=== PATIENT | female | born 1990 | race Caucasian/White ===

== ENCOUNTER 2024-01-24 17:45 | Emergency (ER) | payer BC, SELFPAY ==
[2024-01-24 17:48] VITALS: BP 143/83
[2024-01-24 18:07] LABS: % Basophils 0.3 % (0-2); % Eosinophils 0.9 % (0-6); % Immature Granulocytes 0.1 % (0-0.5); % Lymphocytes 36.5 % (20.5-51.1); % Monocytes 5.3 % (1.7-9.3); % Neutrophils 56.9 % (42.2-75.2); Absolute Eosinophils 0.1 10^3/uL (0-0.7); Absolute Lymphocytes 2.8 10^3/uL (1.2-3.4); Absolute Monocytes 0.4 10^3/uL (0.1-0.6); Absolute Neutrophils 4.4 10^3/uL (1.4-6.5); Hematocrit 37.7 % (37.0-47.0); Hemoglobin 13.1 g/dL (12.0-16.0); Mean Corp Hgb Conc. 34.7 g/dL (33.0-37.0); Mean Corpuscular Hgb 30.5 pg (27.0-31.0); Mean Corpuscular Volume 87.9 fL (81.0-99.0); Mean Platelet Volume 9.9 fL (7.4-10.4); Nucleated Red Blood Cells % 0 %; Platelet Count 250 10^3/uL (130-400); Red Blood Cell Count 4.29 10^6/uL (4.20-5.40); Red Cell Dist. Width 11.9 % (11.5-14.5); White Blood Cell Count 7.8 10^3/uL (4.8-10.8)
[2024-01-24 18:34] LABS: HCG, Serum Qualitative Screen Negative
[2024-01-24 18:35] LABS: ALT (SGPT) 14 U/L (0-35); AST (SGOT) 22 U/L (14-36); Albumin 4.6 g/dl (3.5-5.0); Alkaline Phosphatase 100 U/L (38-126); Blood Urea Nitrogen 17 mg/dl (7-17); Calcium 8.8 mg/dl (8.4-10.2); Carbon Dioxide 25 mmol/L (22-30); Chloride 105 mmol/L (98-107); Glucose 106 mg/dl (70-99); Sodium 137 mmol/L (135-145); Total Bilirubin 0.4 mg/dl (0.2-1.3); eGFR > 60.00
[2024-01-24 19:19] VITALS: BMI 25.4
[2024-01-24 19:23] VITALS: BP 124/79
--- NOTE | 2024-01-24 19:46 | ED.GENMED ---
History of Present Illness
General
Chief Complaint: Headache
Source: patient
Exam Limitations: none
Time Seen by Provider: 01/24/24 19:19
Travel History
Have you had any contact with someone who has COVID-19?: No
Do you have any symptoms of coronavirus? Fever > 100 degrees, chills, cough, shortness of breath, sore throat, loss of taste or smell, muscle aches, or headache?: No
History of Present Illness
History of Present Illness:
33-year-old otherwise healthy female presents complaining of intermittent sudden severe headache starting 2 weeks ago. She developed what she thought was a migraine 2 weeks ago. She has no history of headaches or migraines prior to this. She was
nauseous at this time. She noted left hand numbness at this time. She laid down for 6 hours and it seemed to go away. Since then she has had intermittent sudden onset headache to the top of her head more associated with exertion. She went to the
gym and developed 1, this went away. Today she picked up her 2-year-old son and walked across room developed sudden throbbing to the top of her head. There is no other associated neurologic symptoms with this. She states the pain tends to go away
after she rests. Currently on my exam after waiting in the waiting room over 2 hours, she states that her headache is resolved. She denies double vision or blurry vision with these headaches. She denies any unilateral numbness or weakness
currently. No neck pain chest pain or shortness of breath. Currently on menstrual cycle. She has seen a neurologist since the onset of her symptoms and had an office performed EEG which was negative. They did schedule her for an MRI/MRA of the
brain which is later this
Phy Exam
Physical Exam
Physical Exam:
General: Well-appearing female no acute respiratory distress
HEENT: Normocephalic atraumatic pupils equal round reactive to light
Heart: Regular rate and rhythm no murmurs
Lungs: Clear to auscultation bilaterally no wheezing
Neurologic exam normal gait alert and oriented x 3 no facial asymmetry conversing appropriately no ataxia
Extremities: No cyanosis
Course
Orders/Labs/Results
Orders:
Orders
01/24/24 17:53
Test Result ONCE
01/24/24 17:59
CMP [Comprehensive Metabolic Panel] Urgent
Complete Blood Count/With Diff Urgent
HCG, Serum Qualitative Screen Urgent
01/24/24 19:44
CT Head & Neck Angio W/wo IV Urgent
Reason For Exam: sudden, exertional headache
Abnormal Lab Results
01/24/24
17:59
Glucose 106 H mg/dl
(70-99)
01/24/24 17:59
01/24/24 17:59
Vital Signs
Initial and Last Documented VS:
Initial Vital Signs
Temp Pulse Resp BP Pulse Ox
98.0 F 98 16 143/83 98
01/24/24 17:48 01/24/24 17:48 01/24/24 17:48 01/24/24 17:48 01/24/24 17:48
Last Documented Vital Signs
Temp Pulse Resp BP Pulse Ox
98.0 F 90 14 116/76 100
01/24/24 17:48 01/24/24 21:39 01/24/24 21:39 01/24/24 21:39 01/24/24 21:39
MDM/Problems Addressed
Differential Diagnosis Includes:
Headache. Question atypical migraine however she does describe sudden onset headache with exertion. Currently no symptoms. Will check CT angio of head and neck to evaluate for any bleeding aneurysmal dilation or other concerning issues. Labs
through triage I have reviewed and are negative. Discussed these findings with neurology who did recommend the CTA.
*Critical Care Note
Total Time (30-74mins, 75-104mins- exclusive of procedures): Not Applicable
Update Note
Update Note:
CT angio of the head and neck was ordered which was negative. Patient reassured. There is no aneurysmal dilation of the carotid arteries of the [place]. Patient reassured. Recommend he continue to follow-up with neurology and stick with
the plan regarding the MRI in 2 weeks. Stable for discharge
ED Attending Note
-
Portions of this chart may have been created with voice recognition software.� Occasional wrong word or��sound alike� substitutions may have occurred due to the inherent limitations of voice recognition software.
Discharge Plan
Departure
Patient Disposition: Home (Routine Discharge)
Date of Disposition: 01/24/24
Time of Disposition: 22:17
Patient with high blood pressure during this ER visit?: No
Discharge Problem:
Headache
Instructions: Headache, Adult (DC)
Prescriptions:
No Action
cetirizine [Zyrtec] 10 mg Tablet
10 mg PO DAILY
triamcinolone acetonide [Nasacort] 55 mcg Aerosol,[place]
2 spray INTRANASAL DAILY
Referrals:
Pranay Pittman MD [Family Provider] -
Activity Restrictions/Additional Instructions:
Please return here for any worsening symptoms. Continue to follow-up with neurology as planned otherwise
Interventions
Interventions:
*Risk Screen - Suicide Last Done: 01/24/24 19:19
*General Assessment Last Done: 01/24/24 19:19
*Neglect/Abuse Screening Last Done: 01/24/24 19:19
*ED COVID-19 Vaccine History Last Done: 01/24/24 17:48
ED- Neurological Assessment Last Done: 01/24/24 19:24
[2024-01-24 21:39] VITALS: BP 116/76
== END 2024-01-24 23:00 | disposition home or self-care (01) ==
LOC: EMR 17:45
PROVIDERS: EMERGENCY PHYSICIAN Emergency Medicine; FAMILY PHYSICIAN Family Medicine
DX: R51.9 Headache, unspecified (principal)
CPT/HCPCS: 99285; 70496; 70498; 80053; 84703; 85025; Q9967

== ENCOUNTER → 2024-02-05 07:15 | Outpatient (REF) | payer BC, SELFPAY | LOC: MRI 07:15 | PROVIDERS: ATTENDING PHYSICIAN Internal Medicine; FAMILY PHYSICIAN Family Medicine | DX: G43.009 Migraine without aura, not intractable, without status migrainosus (principal); G44.85 Primary stabbing headache; R42 Dizziness and giddiness | CPT/HCPCS: 70551 ==

== ENCOUNTER → 2024-07-21 11:59 | Outpatient (REF) | payer BC, SELFPAY | LOC: HWRAD 11:59 | PROVIDERS: ATTENDING PHYSICIAN Family Medicine | DX: M25.561 Pain in right knee (principal) | CPT/HCPCS: 73564 ==

== ENCOUNTER 2024-10-26 15:33 | Emergency (ER) | payer BC, SELFPAY ==
[2024-10-26 15:38] VITALS: BP 142/112
--- NOTE | 2024-10-26 15:49 | ED.GENMED ---
ED Provider Triage
<ROSI Cruz - Last Filed: 10/26/24 15:59>
-
Patient seen by provider in Triage?: Seen in Triage
Attestation: A medical screening examination has been initiated by a qualified medical provider. Based on the assessment performed at this time, it has been determined that an emergent medical condition may exist and the patient has been informed
that further medical evaluation and possible additional diagnostic testing may be needed.
HPI: 34 yr old female s/p diastasis repair and hernia repair Nov . pt has infection to umbilical incision (dissoluble sutures ) started 4 d ago and was started on antibiotics (Cefadroxil )by surgeon last night. pt however has been
vomiting since early this morning/late last night and is unable to take them. Pt c/o of discomfort to umbilical region. No fevers. Pt has vomited more than 12 times.
GENERAL: Alert , in no apparent distress
EYE: No visual abnormalities.
NECK: Trachea midline
ENT: No visible abnormalities.
LUNGS: No acute respiratory distress
NEUROLOGICAL: Alert and oriented
SKIN: Skin intact. No visible changes.
MUSCULOSKELETAL: Moving extremities normally
PSYCH: Normal and appropriate interaction.
This is a medical evaluation conducted in person to initiate diagnostic evaluation and provide initial therapeutics. Please see further documentation by the treating clinician.
History of Present Illness
<ROSI Cruz - Last Filed: 10/26/24 15:59>
General
Chief Complaint: Abdominal Symptoms
Time Seen by Provider: 10/26/24 18:47
<ROSI Saini - Last Filed: 10/26/24 22:22>
General
Source: patient
Exam Limitations: none
History of Present Illness
History of Present Illness:
This is a 34 year old female that comes in with c/o nausea, vomiting and diarrhea. States that she had a Tummy tuck and 2 hernia repairs at [facility]. States that she was doing good until her navel got infected. States that one of the dissolvable
sutures was sticking out and it must have gotten infected. States that this started 4 days ago. States that she was told to warm compresses and her surgeon prescribed Cefadroxil 500mg Q12 hour which she took her first dose last night. States that
she was doing Tele visits with the surgeon. States that she has not been able to keep anything down. States that she had a fever on , Friday and Friday. States that her abd is sore. Denies any chest pain, SOB, headache, dizziness, urinary
burning.
Past History
<ROSI Saini - Last Filed: 10/26/24 22:22>
Past History
ED Past Medical History: Asthma and Other (Back and neck pain, Migraines, Stomach ulcers)
ED Past Surgical History: Tonsilectomy and Other (Sinus surgery, Hernia repair X 2, Tummy tuck)
Social History
Tobacco: Non-smoker
Alcohol: Occasional
Personal:
Living: with family
Review of Systems
<ROSI Saini - Last Filed: 10/26/24 22:22>
Review of Systems
All Other Systems: ROS reviewed and negative except as documented in HPI and ROS
Constitutional: Reports fever (, Friday and Friday)
EENT: Reports no symptoms
Respiratory: Reports no symptoms; Denies cough or trouble breathing
Cardiac: Reports no symptoms; Denies chest pain
ABD/GI: Reports abdominal pain (Sore), nausea, vomiting and diarrhea
: Reports no symptoms; Denies dysuria, frequency or urgency
Musculoskeletal: Reports no symptoms
Skin: Reports no symptoms
Neurological: Reports no symptoms; Denies dizzy or headache
Psychiatric: Reports no symptoms
Phy Exam
<ROSI Saini - Last Filed: 10/26/24 22:22>
General Physical Exam
General Presentation: no apparent distress
General age: appears stated age
General Skin: warm and dry
General Habitus: normal
General Mental: alert
General Hydration: dry mucous membranes
ENT Exam
ENT Exam: TM's normal, pharynx normal and neck supple
Eye Exam
Eye Exam: EOMI
Cardiovascular Exam
Cardiovascular Exam: regular rate/rhythm, no edema, no murmur and normal peripheral pulses
Pulmonary Exam
Pulmonary Exam: lungs clear, no respiratory distress, no rales, chest non tender, no crackles, no rhonchi, no wheezing and no cough
Gastrointestinal Exam
Gastrointestinal Exam: normal bowel sounds, soft, no organomegaly, no pulsatile mass, non distended, surgical scar (Lower abd clean and dry. Slight redness around naval and inner skin of naval) and tender (Slight tenderness with palpation)
Musculoskeletal Exam
Musculoskeletal Exam: full ROM and no edema
Skin Exam
Skin Exam: normal color, warm/dry, no petechia and redness (around the naval, Surgical incision lower abd clean and dry. )
Psychiatric Exam
Psychiatric Exam: normal mood/affect
Sepsis
<ROSI Cruz - Last Filed: 10/26/24 15:59>
Sepsis Screen
Sepsis Screen: Possible Sepsis
Date: 10/26/24
Time: 15:49
<ROSI Saini - Last Filed: 10/26/24 22:22>
Sepsis Screening
Sepsis Assessment: Sepsis Ruled Out
Sepsis Screen
Sepsis Screen: Sepsis Ruled Out
Date: 10/26/24
Time: 22:22
Course
<ROSI Cruz - Last Filed: 10/26/24 15:59>
Orders/Labs/Results
Orders:
Orders
10/26/24 15:49
Complete Blood Count/With Diff Urgent
Comprehensive Metabolic Panel Urgent
Lipase Urgent
10/26/24 15:50
Ondansetron Orally Disint [Zofran Odt (Orally Disintegrating)] 4 mg .ROUTE .STK-MED ONE
10/26/24 15:55
Ondansetron Orally Disint [Zofran Odt (Orally Disintegrating)] 4 mg PO NOW STA
10/26/24 19:20
Ondansetron Injectable [Zofran] 4 mg IV NOW STA
10/26/24 19:21
0.9% Sodium Chloride 1000 ml [Nss] 1,000 ml IV BOLUS
Ketorolac [Toradol] 30 mg IV NOW STA
10/26/24 19:34
Lactic Acid Urgent
Abnormal Lab Results
10/26/24
15:49
WBC 14.2 H 10^3/uL
(4.8-10.8)
MCH 31.1 H pg
(27.0-31.0)
Abs Immat Gran (auto) 0.1 H 10^3/uL
(0-0.05)
Absolute Neuts (auto) 12.9 H 10^3/uL
(1.4-6.5)
Absolute Lymphs (auto) 0.8 L 10^3/uL
(1.2-3.4)
Neutrophils % 90.9 H %
(42.2-75.2)
Lymphocytes % 5.8 L %
(20.5-51.1)
Glucose 119 H mg/dl
(70-99)
Albumin 5.1 H g/dl
(3.5-5.0)
10/26/24 15:49
10/26/24 15:49
Vital Signs
Initial and Last Documented VS:
Initial Vital Signs
Temp Pulse Resp BP Pulse Ox
98.3 F 121 22 142/112 99
10/26/24 15:38 10/26/24 15:38 10/26/24 15:38 10/26/24 15:38 10/26/24 15:38
Last Documented Vital Signs
Temp Pulse Resp BP Pulse Ox
98.3 F 99 15 107/68 100
10/26/24 15:38 10/26/24 21:00 10/26/24 21:00 10/26/24 21:00 10/26/24 20:45
<ROSI Saini - Last Filed: 10/26/24 22:22>
Orders/Labs/Results
Orders:
Orders
10/26/24 15:49
Complete Blood Count/With Diff Urgent
Comprehensive Metabolic Panel Urgent
Lipase Urgent
10/26/24 15:50
Ondansetron Orally Disint [Zofran Odt (Orally Disintegrating)] 4 mg .ROUTE .STK-MED ONE
10/26/24 15:55
Ondansetron Orally Disint [Zofran Odt (Orally Disintegrating)] 4 mg PO NOW STA
10/26/24 19:20
Ondansetron Injectable [Zofran] 4 mg IV NOW STA
10/26/24 19:21
0.9% Sodium Chloride 1000 ml [Nss] 1,000 ml IV BOLUS
Ketorolac [Toradol] 30 mg IV NOW STA
10/26/24 19:34
Lactic Acid Urgent
Abnormal Lab Results
10/26/24
15:49
WBC 14.2 H 10^3/uL
(4.8-10.8)
MCH 31.1 H pg
(27.0-31.0)
Abs Immat Gran (auto) 0.1 H 10^3/uL
(0-0.05)
Absolute Neuts (auto) 12.9 H 10^3/uL
(1.4-6.5)
Absolute Lymphs (auto) 0.8 L 10^3/uL
(1.2-3.4)
Neutrophils % 90.9 H %
(42.2-75.2)
Lymphocytes % 5.8 L %
(20.5-51.1)
Glucose 119 H mg/dl
(70-99)
Albumin 5.1 H g/dl
(3.5-5.0)
10/26/24 15:49
10/26/24 15:49
Leukocytosis, Hyperglycemia. Lipase normal at 69
Vital Signs
Initial and Last Documented VS:
Initial Vital Signs
Temp Pulse Resp BP Pulse Ox
98.3 F 121 22 142/112 99
10/26/24 15:38 10/26/24 15:38 10/26/24 15:38 10/26/24 15:38 10/26/24 15:38
Last Documented Vital Signs
Temp Pulse Resp BP Pulse Ox
98.3 F 99 15 107/68 100
10/26/24 15:38 10/26/24 21:00 10/26/24 21:00 10/26/24 21:00 10/26/24 20:45
Cocolt;Jose Tijerina, DO - Last Filed: 10/26/24 22:06>
Orders/Labs/Results
Orders:
Orders
10/26/24 15:49
Complete Blood Count/With Diff Urgent
Comprehensive Metabolic Panel Urgent
Lipase Urgent
10/26/24 15:50
Ondansetron Orally Disint [Zofran Odt (Orally Disintegrating)] 4 mg .ROUTE .STK-MED ONE
10/26/24 15:55
Ondansetron Orally Disint [Zofran Odt (Orally Disintegrating)] 4 mg PO NOW STA
10/26/24 19:20
Ondansetron Injectable [Zofran] 4 mg IV NOW STA
10/26/24 19:21
0.9% Sodium Chloride 1000 ml [Nss] 1,000 ml IV BOLUS
Ketorolac [Toradol] 30 mg IV NOW STA
10/26/24 19:34
Lactic Acid Urgent
Abnormal Lab Results
10/26/24
15:49
WBC 14.2 H 10^3/uL
(4.8-10.8)
MCH 31.1 H pg
(27.0-31.0)
Abs Immat Gran (auto) 0.1 H 10^3/uL
(0-0.05)
Absolute Neuts (auto) 12.9 H 10^3/uL
(1.4-6.5)
Absolute Lymphs (auto) 0.8 L 10^3/uL
(1.2-3.4)
Neutrophils % 90.9 H %
(42.2-75.2)
Lymphocytes % 5.8 L %
(20.5-51.1)
Glucose 119 H mg/dl
(70-99)
Albumin 5.1 H g/dl
(3.5-5.0)
10/26/24 15:49
10/26/24 15:49
Vital Signs
Initial and Last Documented VS:
Initial Vital Signs
Temp Pulse Resp BP Pulse Ox
98.3 F 121 22 142/112 99
10/26/24 15:38 10/26/24 15:38 10/26/24 15:38 10/26/24 15:38 10/26/24 15:38
Last Documented Vital Signs
Temp Pulse Resp BP Pulse Ox
98.3 F 99 15 107/68 100
10/26/24 15:38 10/26/24 21:00 10/26/24 21:00 10/26/24 21:00 10/26/24 20:45
<ROSI Saini - Last Filed: 10/26/24 22:22>
MDM/Problems Addressed
Differential Diagnosis Includes:
Viral syndrome,
MDM/Problems Addressed:
This is a 34 year old female that comes in with c/o nausea, vomiting and diarrhea. States that her children were sick and then she started with the nausea/vomiting/diarrhea last night. States that she also started 4 days ago with redness round her
naval. States that she recently had a Tummy tuck and 2 hernia repairs. States that she did a Tele visit with the surgeon and she was told to do warm compress and use Cefadroxil [id number]. States that she has not been able to keep anything down.
Will check labs, IV fluids Medicate for pain and Nausea.
Patient is feeling better. She was seen by Dr. Tijerina and is ready for discharge.
Chronic conditions affecting care:
NA
Acute Exacerbation and/or Progression of Chronic Illness:
NA
<Jose Tijerina DO - Last Filed: 10/26/24 22:06>
MDM/Problems Addressed
Chronic conditions affecting care: Previous abdomnial surgery
Acute Exacerbation and/or Progression of Chronic Illness: Previous abdomnial surgery
<ROSI Saini - Last Filed: 10/26/24 22:22>
*Pulse Oximetry
Patient hypoxic: no
*EKG
Interpreted by ED Provider?: NA
Rate: EKG- N/A
*Cancer Program Director Interpretation
Rate: tachycardiac
Heart Rate: 100
Rhythm: sinus tachycardia
*Critical Care Note
Total Time (30-74mins, 75-104mins- exclusive of procedures): Not Applicable
<DO Ean Ponce Last Filed: 10/26/24 22:06>
Data Reviewed
Further Testing Considered But Not Given:
CT abdomen pelvis not indicated
<DO Ean Ponce Last Filed: 10/26/24 22:06>
Patient Management
Social determinants of health affecting care: Living situation and Strong social support
Escalation/DeEscalation of care consider admission/obs:
Admission considered, not indicated
ED Attending Note
<ROSI Cruz - Last Filed: 10/26/24 15:59>
-
Portions of this chart may have been created with voice recognition software.� Occasional wrong word or��sound alike� substitutions may have occurred due to the inherent limitations of voice recognition software.
<Jose Tijerina DO - Last Filed: 10/26/24 22:06>
ED Attending Note
Patient seen and examined by attending physician: Yes
ED Attending Note:
I reviewed and agree with history treatment plan by Abigail Dee. My exam revealed 34-year-old female in no acute distress. Mild erythema about umbilicus. Do not suspect abscess. Do not suspect deep space infection. Abdomen exam benign, patient
stable for discharge. Improved after IV fluids and IV Zofran. Suspect viral cause.
Discharge Plan
Departure
Patient Disposition: Home (Routine Discharge)
Date of Disposition: 10/26/24
Time of Disposition: 22:18
Patient with high blood pressure during this ER visit?: No
Condition: Good
Covid-19: Not Applicable
Discharge Problem:
Nausea vomiting and diarrhea
Instructions: Diarrhea in teens and adults, Nausea and Vomiting, Adult (DC)
Prescriptions:
New
ondansetron 4 mg tablet,disintegrating
4 mg PO Q8H PRN (Reason: nausea and vomiting) Qty: 10 0RF
No Action
cetirizine [Zyrtec] 10 mg Tablet
10 mg PO DAILY
triamcinolone acetonide [Nasacort] 55 mcg Aerosol,[place]
2 spray INTRANASAL DAILY
Referrals:
Pranay Pittman MD [Family Provider] - Call in 1-3 days for appt
Activity Restrictions/Additional Instructions:
As discussed, your blood work shows that your white blood cell count is slightly elevated. This can be due to the viral illness and the redness of the naval. Please continue with the warm compress and use the antibiotics as directed. A prescription
for Zofran to help with the nausea and vomiting has been sent to your Pharmacy. Please follow up with the family doctor as needed. Please also follow up with your Surgeon. IF YOU HAVE ANY OTHER CONCERNS PLEASE RETURN TO THE EMERGENCY ROOM.
Interventions
Interventions:
*Risk Screen - Suicide Last Done: 10/26/24 15:38
*General Assessment Last Done: 10/26/24 15:38
*Neglect/Abuse Screening Last Done: 10/26/24 15:38
ED- Fall Risk Assessment Last Done: 10/26/24 18:36
*ED COVID-19 Vaccine History Last Done: 10/26/24 18:36
[id number] Assessment Last Done: 10/26/24 18:38
Discharge Date and Time
Print Language: PASHTO
[2024-10-26] MEDS: ZOFRAN ODT (ORALLY DISINTEGRATING) 4 MG PO ×2 (15:55→22:34)
[2024-10-26 16:06] LABS: % Basophils 0.2 % (0-2); % Eosinophils 0.1 % (0-6); % Immature Granulocytes 0.4 % (0-0.5); % Lymphocytes 5.8 % (20.5-51.1); % Monocytes 2.6 % (1.7-9.3); % Neutrophils 90.9 % (42.2-75.2); Absolute Immature Granulocytes 0.1 10^3/uL (0-0.05); Absolute Lymphocytes 0.8 10^3/uL (1.2-3.4); Absolute Monocytes 0.4 10^3/uL (0.1-0.6); Absolute Neutrophils 12.9 10^3/uL (1.4-6.5); Hematocrit 42.6 % (37.0-47.0); Hemoglobin 15.1 g/dL (12.0-16.0); Mean Corp Hgb Conc. 35.4 g/dL (33.0-37.0); Mean Corpuscular Hgb 31.1 pg (27.0-31.0); Mean Corpuscular Volume 87.8 fL (81.0-99.0); Mean Platelet Volume 9.7 fL (7.4-10.4); Nucleated Red Blood Cells % 0 %; Platelet Count 305 10^3/uL (130-400); Red Blood Cell Count 4.85 10^6/uL (4.20-5.40); Red Cell Dist. Width 12.1 % (11.5-14.5); White Blood Cell Count 14.2 10^3/uL (4.8-10.8)
[2024-10-26 16:19] LABS: ALT (SGPT) 19 U/L (0-35); AST (SGOT) 26 U/L (14-36); Albumin 5.1 g/dl (3.5-5.0); Alkaline Phosphatase 102 U/L (38-126); Blood Urea Nitrogen 13 mg/dl (7-17); Calcium 9.8 mg/dl (8.4-10.2); Carbon Dioxide 22 mmol/L (22-30); Chloride 104 mmol/L (98-107); Glucose 119 mg/dl (70-99); Lipase 69 U/L (23-300); Potassium 4.2 mmol/L (3.5-5.1); Sodium 139 mmol/L (135-145); Total Bilirubin 1.1 mg/dl (0.2-1.3); Total Protein 7.9 g/dl (6.3-8.2); eGFR > 60.00
[2024-10-26 18:38] VITALS: BMI 24.6
[2024-10-26 18:47] VITALS: BP 96/65
[2024-10-26 19:00] VITALS: BP 112/67
[2024-10-26] MEDS: ZOFRAN 4 MG IV (19:35)
[2024-10-26] MEDS: NSS 1000 IV (19:36)
[2024-10-26] MEDS: TORADOL 30 MG IV (19:36)
[2024-10-26 20:00] VITALS: BP 107/62
[2024-10-26 20:06] LABS: Lactic Acid 1.6 mmol/L (0.7-2.0)
[2024-10-26 21:00] VITALS: BP 107/68
== END 2024-10-26 22:52 | disposition home or self-care (01) ==
LOC: EMR 15:33
PROVIDERS: Clinical Nurse Specialist Family Health; Nurse Practitioner; EMERGENCY PHYSICIAN Emergency Medicine; FAMILY PHYSICIAN Family Medicine
DX: R11.2 Nausea with vomiting, unspecified (principal); R19.7 Diarrhea, unspecified; J45.909 Unspecified asthma, uncomplicated; Z87.11 Personal history of peptic ulcer disease; Z98.890 Other specified postprocedural states
CPT/HCPCS: 96374; 96375; 99284; 80053; 83605; 83690; 85025; 96361

== ENCOUNTER → 2024-12-02 10:09 | Outpatient (REF) | payer BC, SELFPAY | LOC: HWRAD 10:09 | PROVIDERS: ATTENDING PHYSICIAN Advanced Practice Midwife; FAMILY PHYSICIAN Family Medicine | DX: R10.2 Pelvic and perineal pain (principal) | CPT/HCPCS: 76830; 76856 ==

== ENCOUNTER 2025-10-31 12:46 | Emergency (ER) | payer BC, SELFPAY ==
[2025-10-31 12:57] VITALS: BP 117/82
[2025-10-31 13:35] LABS: Hematocrit 38.4 % (37.0-47.0); Hemoglobin 13.6 g/dL (12.0-16.0); Mean Corp Hgb Conc. 35.4 g/dL (33.0-37.0); Mean Corpuscular Volume 85.5 fL (81.0-99.0); Nucleated Red Blood Cells % 0 %; Platelet Count 249 10^3/uL (130-400); Red Cell Dist. Width 12.0 % (11.5-14.5)
[2025-10-31 13:49] LABS: HCG, Serum Qualitative Screen Negative
[2025-10-31 13:56] LABS: ALT (SGPT) 14 U/L (0-35); AST (SGOT) 22 U/L (14-36); Albumin 4.7 g/dl (3.5-5.0); Alkaline Phosphatase 93 U/L (38-126); Blood Urea Nitrogen 12 mg/dl (7-17); Calcium 9.4 mg/dl (8.4-10.2); Carbon Dioxide 24 mmol/L (22-30); Chloride 105 mmol/L (98-107); Glucose 117 mg/dl (70-99); Potassium 4.0 mmol/L (3.5-5.1); Sodium 136 mmol/L (135-145); Total Protein 7.5 g/dl (6.3-8.2); eGFR > 60.00
[2025-10-31 14:04] LABS: Troponin I 0.012 ng/ml
--- NOTE | 2025-10-31 15:09 | ED.GENMED ---
History of Present Illness
General
Chief Complaint: Chest Pain
Source: patient
Exam Limitations: none
History of Present Illness
History of Present Illness:
Note:
CHIEF COMPLAINT(S)
Chest tightness for a week and a half, worse with sitting at a desk, causing coughing.
HISTORY OF PRESENT ILLNESS
The patient is a 35-year-old female presenting with chest tightness persisting for approximately a week and a half. 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
at her desk job. The patient reports coughing in response to the tightness, though she notes it does not significantly affect her breathing. There is no associated leg swelling or leg pain. She denies any new or worsening dyspnea or exertional
symptoms. The patient also mentions a history of asthma and bronchitis, with a notable bronchitis episode in September. She recently tested negative for Helicobacter pylori after being treated. The patient denies any recent dietary triggers linked to
the chest symptoms but correlates overconsumption of food with lower abdominal pain attributed to irritable bowel syndrome (IBS).
PAST MEDICAL AND SURGICAL HISTORY
Asthma, irritable bowel syndrome, past bronchitis.
FAMILY HISTORY
The patients father has stomach ulcers and recently cleared a Helicobacter pylori infection, but no history of heart attack or early heart disease in the family.
REVIEW OF SYSTEMS
- Cardiovascular: Intermittent chest tightness, no exertional symptoms reported.
- Respiratory: Asthma, occasional cough due to chest tightness, no acute dyspnea.
- Gastrointestinal: History of IBS, past episodes of lower abdominal pain with overeating.
PHYSICAL EXAM
General: Alert, no acute distress.
Skin: Warm, dry.
Head: Normocephalic, atraumatic.
Neck: Supple, trachea midline.
Eyes, Ears, Nose, Mouth, and Throat: Oral mucosa moist.
Cardiovascular: Normal heart rate and rhythm, no murmur, lungs clear to auscultation.
Respiratory: Respirations are non-labored.
Gastrointestinal: Abdomen nondistended.
Back: Normal range of motion, normal alignment.
Musculoskeletal: Normal range of motion, normal strength.
Neurological: Alert and oriented to person, place, time, and situation.
Psychiatric: Cooperative, appropriate mood & affect.
PLAN
- Perform a chest X-ray to assess cardiac size and any anatomic abnormalities.
- Consider gastrointestinal causes for chest discomfort and initiate a trial of an antacid regimen.
- Monitor for triggers or patterns associated with chest tightness, including timing, food intake, and activities.
- Follow up with primary care provider for further evaluation and management.
DIFFERENTIAL DIAGNOSIS
The Differential Diagnosis includes, in no particular order and is not limited to:
- Gastroesophageal Reflux Disease (GERD)
- Coronary Artery Disease
- Musculoskeletal Chest Pain
- Anxiety-related Chest Tightness
- Asthma Exacerbation
- Pulmonary Embolism
- Gallbladder Disease
- Esophageal Spasm
- Hiatal Hernia
- Pericarditis
EKG
My independent EKG interpretation is:
- Rhythm: Normal size rhythm observed.
- Heart Rate: 74 beats per minute.
- [place]: Normal axis.
- ST Segment Changes: None observed.
- Intervals: Normal intervals noted.
Disposition:
SUMMARY OF ENCOUNTER
The patient, a 35-year-old female, was seen for persistent chest discomfort and palpitations that she had been experiencing for one and a half weeks. Initial examination revealed normal findings in the EKG, troponin, and complete metabolic panel
(CMP). The CBC and chest x-ray also returned normal results, and the EKG showed no signs of ischemia. The patient appeared well overall. Due to the lack of exertional chest pain and no significant family history of early heart disease or other
cardiac risk factors, gastrointestinal origins for the symptoms were considered. As part of the management plan, a trial of a proton pump inhibitor (PPI) was initiated to assess if this might alleviate her symptoms.
PLAN
Prescribe a proton pump inhibitor (PPI) to be taken 30 minutes prior to breakfast in the morning.
Refer the patient to her primary care provider (PCP) for an outpatient follow-up to further evaluate her ongoing chest symptoms and monitor response to the PPI treatment.
INDEPENDENT REVIEW OF LABS AND INTERPRETATION OF TESTS
My independent review of the EKG indicates a non-ischemic pattern.
My independent review of troponin levels shows normal results.
My independent review of the CMP confirms normal findings.
My independent review of the CBC also confirms normal values.
My independent interpretation of the chest x-ray is normal.
MEDICATION RECONCILIATION
A prescription for a proton pump inhibitor (PPI) was provided to be taken 30 minutes before breakfast each morning.
MEDICAL DECISION MAKING
-Complexity of Data Reviewed: Chronic conditions affecting care include asthma and irritable bowel syndrome (IBS). Differential Diagnosis included gastroesophageal reflux disease (GERD), coronary artery disease, musculoskeletal chest pain,
anxiety-related chest tightness, asthma exacerbation, pulmonary embolism, gallbladder disease, esophageal spasm, hiatal hernia, and pericarditis.
-Data:
Category 1
Normal and non-emergency department records were reviewed: EKG, troponin, CMP, CBC, and chest x-ray.
Category 2
None discussed.
Category 3
None discussed.
-Risk:
Consideration of Admission/Observation: Escalation of care including admission/observation was considered given the complexity and risk of the patients presenting complaint, exam findings, and/or their underlying comorbidities. However, ultimately I
feel the patient is safe for outpatient management with close follow-up. Reasoning: Work-up reassuring, does not reveal any acute life/organ-threatening processes, patients symptoms well-controlled upon reevaluation, reexamination is reassuring,
vitals are stable, patient agreeable with discharge, reliable for follow-up.
DIAGNOSIS
Gastroesophageal Reflux Disease (GERD) (K21.9)
Chest Pain, Unspecified (R07.9)
Past History
Past History
ED Past Medical History: Asthma and Other (Back and neck pain, Migraines, Stomach ulcers)
ED Past Surgical History: Tonsilectomy and Other (Sinus surgery, Hernia repair X 2, Tummy tuck)
Social History
Tobacco: Non-smoker
Alcohol: Occasional
Personal:
Living: with family
Phy Exam
Physical Exam
Physical Exam:
.
Scores
Heart Score for Chest Pain Patients
STEMI patient?: No
History: Slightly or Non-Suspicious
ECG: Normal
Age: </= 45 years
Risk Factors: No Risk Factors
Troponin: </= Normal Limit
Heart Score for Chest Pain Patients: 0
Heart Score Risk: 2.5% MACE over next 6 weeks
Course
Orders/Labs/Results
Orders:
Orders
10/31/25 12:46
EKG [Electrocardiogram (*1)] Urgent
Reason for Study: Chest Pain
10/31/25 12:47
EKG- Treatment ONCE
10/31/25 13:05
Test Result ONCE
10/31/25 13:12
Complete Blood Count/With Diff Urgent
Comprehensive Metabolic Panel Urgent
HCG, Serum Qualitative Screen Urgent
Troponin I Urgent
10/31/25 14:57
CR Chest - 2 Views Urgent
Comment:
Reason For Exam: cp
Abnormal Lab Results
10/31/25
13:12
Glucose 117 H mg/dl
(70-99)
10/31/25 13:12
10/31/25 13:12
Vital Signs
Initial and Last Documented VS:
Initial Vital Signs
Temp Pulse Resp BP Pulse Ox
98.5 F 99 16 117/82 98
10/31/25 12:57 10/31/25 12:57 10/31/25 12:57 10/31/25 12:57 10/31/25 12:57
Last Documented Vital Signs
Temp Pulse Resp BP Pulse Ox
98.5 F 99 16 117/82 98
10/31/25 12:57 10/31/25 12:57 10/31/25 12:57 10/31/25 12:57 10/31/25 15:12
*Pulse Oximetry
SaO2: 98
Oxygen Mode of Delivery: Room air
Patient hypoxic: no
*Critical Care Note
Total Time (30-74mins, 75-104mins- exclusive of procedures): Not Applicable
ED Attending Note
-
Portions of this chart may have been created with voice recognition software.� Occasional wrong word or��sound alike� substitutions may have occurred due to the inherent limitations of voice recognition software.
Discharge Plan
Departure
Patient Disposition: Home (Routine Discharge)
Date of Disposition: 10/31/25
Time of Disposition: 15:24
Patient with high blood pressure during this ER visit?: No
Discharge Problem:
Chest pain, Palpitations
Instructions: Palpitations, Chest Pain PCP Follow Up
Prescriptions:
New
pantoprazole [Protonix] 40 mg tablet,delayed release (DR/EC)
40 mg PO DAILY Qty: 30 0RF
Rx Instructions:
Please take 30 minutes prior to eating or drinking anything in the morning.
No Action
cetirizine [Zyrtec] 10 mg Tablet
10 mg PO DAILY
triamcinolone acetonide [Nasacort] 55 mcg Aerosol,[place]
2 spray INTRANASAL DAILY
ondansetron 4 mg tablet,disintegrating
4 mg PO Q8H PRN (Reason: nausea and vomiting) Qty: 10 0RF
Activity Restrictions/Additional Instructions:
Return immediately for worsening pain, shortness breath, palpitations, sweating, nausea, weakness of any kind, numbness, tingling or any other concerns.
Please see your doctor in the next 3 to 5 days for follow-up and reevaluation.
Interventions
Interventions:
*General Assessment Last Done: 10/31/25 12:57
*Neglect/Abuse Screening Last Done: 10/31/25 12:57
*ED COVID-19 Vaccine History Last Done: 10/31/25 12:57
*ED Influenza Vaccine History Last Done: 10/31/25 12:57
*Risk Screen - Suicide (C-SSRS) Last Done: 10/31/25 12:57
*Nursing Disposition Last Done: 10/31/25 16:04
ED- Cardiac Assessment Last Done: 10/31/25 14:55
Discharge Date and Time
Discharge Date/Time: 10/31/25 16:04
Print Language: LATVIAN
== END 2025-10-31 16:04 | disposition home or self-care (01) ==
LOC: EMR 12:46
PROVIDERS: Emergency Medicine; EMERGENCY PHYSICIAN Emergency Medicine
DX: R07.9 Chest pain, unspecified (principal); R00.2 Palpitations; J45.909 Unspecified asthma, uncomplicated; K58.9 Irritable bowel syndrome, unspecified; Z87.11 Personal history of peptic ulcer disease
CPT/HCPCS: 99284; 71046; 80053; 84484; 84703; 85025; 93005